=== PATIENT | male | born 1940 | race Caucasian/White ===

== ENCOUNTER 2016-11-29 10:00 | Outpatient (RCR) ==
--- NOTE | 2016-11-26 15:53 | RS.OPPTEV2 ---
Date of Note: 11/26/16 Visit #: 1 Date of Evaluation: 11/26/16 Payer Source: MEDICARE Date of Onset/Injury/Change in Status: 09/22/15 Surgery Performed?: No Treatment Diagnosis: Unsteady gt History of Condition/Mechanism of Injury:: Patient states he noticed his balance is getting worse recentlly and he feels weak all over. He states this has been going on for many yrs and has just ignored what he was seeing until he began having more difficulty getting out of a chair or getting out of bed. He has had back surgery X 2 ~ 15 yrs ago and states that he has been in pain for many yrs. He does not know if this is contributing to his balance and weakness problems. He states he fell 2-3 wks ago and landed in a pond where he was fishing. Prior Level of Function.....Patient was independent with: ADL's, Self Care, Work /Vocation, Caregiving, Ambulation/Mobility, Community Integration/Access Functional Limitations: Self Care, ADL's, Lifting, Carrying, Sitting, Standing, Bending, Squatting, Ambulation, Community Access/Integration Current Subjective/complaints:: Patient states has been falling quiet a bit over the past few months and almost fell in the shower today before coming to PT appointment. He is having difficulty performing all of his ADLs. Patient had a bone marrow biopsy about a month ago (he is unsure of who did this or why but thinks that is what was done). He states his pain has been worse since then but the balance and the pain he is not sure are connected. Treatment Side (optional): N/A Medical History Medical History: Diabetes, Arthritis, Cancer Medical History Comments:: skin cancer, patient sees Dr. Tabor for a kidney disorder. he states he shouild be on dialysis but has refused it. 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 Surgical History: Lumbar Spine, Other Surgical History Comments:: bladder surgery Smoking Status: Former smoker Hx Home Medications: Patient will bring list of meds next visit. Pain Assessment - Pain Description Pain Location: back pain and bilateral knees Pain Description: Sharp, Aching Current Pain Intensity: 8/10 Functional Outcome Measure Tinetti: 15 (46% disability) - G Codes & Severity Modifier G Codes & Modifier: Mobility. Eval - CK. Goal - CJ Source of G Code score: Tinetti Balance and Gait Assessment Gait - Gait Pattern General Gait Pattern Observation: Shuffling Step, Decrease Stride Lngth (R), Decrease Stride Lngth (L) General Range of Motion: R hamstring -40, L -45 degrees Measured hooklying in 90/90 position Muscle Strength: BLE weakness with L > R. Bilateral hips 3+/5, otherwise LLE 3+ /5 and RLE 4/5 throughout. Minimal pain reported with testing. Special Tests: BP testing: Lying down 140/78, sitting 130/80 & standing 140/60 Palpation Comments:: Muscle tightness throughout Sensation - Sensation Sensation Description: Numbness (Bilateral knees) Balance - Sitting Balance Static Sitting Balance: Normal Dynamic Sitting Balance: Good - Standing Balance Static Standing Balance: Good Dynamic Standing Balance: Fair Interventions - Exercise/Activities/Manual Therapy Exercises/Activities: NA Manual Therapy: NA - Charges Total Direct Minutes: 45 Total Treatment Time: 45 Procedures billed for this date of service:: PT Lyn (High) Assessment Assessment: Patient has significant BLE weakness, decreased BLE muscle length especially hamstrings, chronic LBP, decreased static and dynamic standing balance, decreased activity tolerance and multiple gt deficits. Patient Education: Education of diagnosis, Home Safety (Patient was encouraged to use RW which he has at home to minimize falls.), Activity Modification, Education of Plan of Care Rehab Potential: Good Short Term Goals Goal #1: Patient independent with basic strengthening HEP Goal to be met by: 12/13/16 Goal #2: BLE strength 4 to 4+/5 throughout. Goal to be met by: 12/13/16 Goal #3: Bilateral hamstring stretching initiated with correct technique. Goal to be met by: 12/13/16 Goal #4: Patient ambulates 200' with step thru gait pattern. Goal to be met by: 12/13/16 Long-Term Goals Goal #1: Tinetti score to decrease fall risk. Goal to be met by: 01/03/17 Goal #2: 5/5 BLE strength to improve stability. Goal to be met by: 01/03/17 Goal #3: Patient reports no falls in the past month. Goal to be met by: 01/03/17 Goal #4: Independent with DC HEP to maintain improved status. Goal to be met by: 01/03/17 Plan - Treatment to be Provided Procedures: Therapeutic Exercises, Therapeutic Activity, Gait Training, Manual Therapy, Massage, Patient Education Modalities: No Modalities - Treatment Plan Frequency: 3 X week Duration: 6 weeks ORDER # VISITS AND/OR THROUGH DATE: 01/03/2017 - Treatment Code (1) Unsteady gait Comments: R26.81 (2) Muscle weakness (generalized) Comments: M62.81
--- NOTE | 2016-11-27 16:27 | RS.OPPTDN ---
Subjective Date of Note: 11/27/16 Visit #: 2 Date of Evaluation: 11/26/16 Payer Source: MEDICARE Treatment Diagnosis: Unsteady gt Current Subjective/complaints:: Patient reports LE weakness is his main problem , but has significant back pain when getting up from bed or chair. Pain Assessment - Pain Description Pain Location: back pain and bilateral knees Pain Description: Sharp, Aching Current Pain Intensity: 7-8/10 - Heat/Cryotherapy Treatment: Hot Pack ([id number] to lowback prior to EX. Patient in supine. ) Interventions - Exercise/Activities/Manual Therapy Exercises/Activities: [id number] Assisted stretching of bilateral hamstrings, SKTC , and limited rotation. Isometric hip add and hip flexion. Alt hip flexion. SLR. Red theraband for hip abd in hook-lying and ham curls. Yellow theraband for scap retraction and bilateral shoulder ER. Reviewed HEP and general body mechanics. 3mins on treadmill slow pace. Leg press 30# 3s/10reps and ankld df 30 # 2s/10reps. Stationary bike 3mins slow pace. Reviewed safety and HEP. Patient given copies of HEP and therabands. Total minutes of Exercise: 30mins Manual Therapy: NA HOME EXERCISE PROGRAM: Isometric hip add and hip flexion. SLR. Yellow theraband for scap retraction and bilateral shoulder ER. - Charges Total Direct Minutes: 30mins Total Treatment Time: 50mins Procedures billed for this date of service:: HP, EX2 Assessment: Patient tolerates initiaiton of strengthening exercise and is motivated to progress. Patient Education: Body/Joint mechanics, Home Exercise Program, Home Safety Patient demonstrates compliance with HEP?: Yes Short Term Goals Goal #1: Patient independent with basic strengthening HEP Goal to be met by: 12/13/16 Progress towards Goal:: Progressing Goal #2: BLE strength 4 to 4+/5 throughout. Goal to be met by: 12/13/16 Goal #3: Bilateral hamstring stretching initiated with correct technique. Goal to be met by: 12/13/16 Goal #4: Patient ambulates 200' with step thru gait pattern. Goal to be met by: 12/13/16 Brake Mechanic Goals Goal #1: Tinetti score to decrease fall risk. Goal to be met by: 01/03/17 Goal #2: 5/5 BLE strength to improve stability. Goal to be met by: 01/03/17 Goal #3: Patient reports no falls in the past month. Goal to be met by: 01/03/17 Goal #4: Independent with DC HEP to maintain improved status. Goal to be met by: 01/03/17 Plan PLAN OF CARE EXPIRES ON:: 01/03/17 ORDER # VISITS AND/OR THROUGH DATE: 01/03/2017 PLAN: Continue Plan of Care
--- NOTE | 2016-11-29 11:28 | RS.OPPTDN ---
Subjective Date of Note: 11/29/16 Visit #: 3 Date of Evaluation: 11/26/16 Payer Source: MEDICARE Treatment Diagnosis: Unsteady gt Current Subjective/complaints:: Patient states he may continue HEP and stop therapy, as he is afraid his insurance will not cover his bill. Pain Assessment - Pain Description Pain Location: back pain and bilateral knees Pain Description: Sharp, Aching Current Pain Intensity: 7-8/10 Interventions - Exercise/Activities/Manual Therapy Exercises/Activities: [id number] Assisted stretching of bilateral hamstrings, SKTC , and limited rotation. Isometric hip add and hip flexion. Alt hip flexion. SLR. Red theraband for hip abd in hook-lying and ham curls. Patient given red and green therabands for progression of scap retraction. Added alt hip flexion and SAQ with 3# cuff weights, 2s/10reps each. Reviewed HEP and general body mechanics. 3mins then 2mins on treadmill at 0.9mph. Leg press 30# 2s/10reps and increased to 45# for 10reps. Stationary bike 3mins slow pace. Reviewed safety and HEP. Patient given copies of new exercises and therabands to progress with. Total minutes of Exercise: 30mins Manual Therapy: NA HOME EXERCISE PROGRAM: Isometric hip add and hip flexion. SLR. Yellow theraband for scap retraction and bilateral shoulder ER. - Charges Total Direct Minutes: 30mins Total Treatment Time: 35mins Procedures billed for this date of service:: EX2 Assessment: Patient motivated to porgress but is planning to stop and continue HEP as he is afraid insurance will no cover bill. Patient Education: Body/Joint mechanics, Home Exercise Program, Home Safety, Activity Modification, Education of Plan of Care Comments: PT discussed POC with patient and he was advised he is a good candidate and insurance should cover his visits. Patient demonstrates compliance with HEP?: Yes Short Term Goals Goal #1: Patient independent with basic strengthening HEP Goal to be met by: 12/13/16 (100%) Progress towards Goal:: Met Goal #2: BLE strength 4 to 4+/5 throughout. Goal to be met by: 12/13/16 Goal #3: Bilateral hamstring stretching initiated with correct technique. Goal to be met by: 12/13/16 Progress towards Goal:: Progressing Goal #4: Patient ambulates 200' with step thru gait pattern. Goal to be met by: 12/13/16 Progress towards Goal:: Progressing Snf Goals Goal #1: Tinetti score to decrease fall risk. Goal to be met by: 01/03/17 Goal #2: 01/24 BLE strength to improve stability. Goal to be met by: 01/03/17 Goal #3: Patient reports no falls in the past month. Goal to be met by: 01/03/17 Goal #4: Independent with DC HEP to maintain improved status. Goal to be met by: 01/03/17 Plan PLAN OF CARE EXPIRES ON:: 01/03/17 ORDER # VISITS AND/OR THROUGH DATE: 01/03/2017 PLAN: Hold (Patient will continue HEP over weekend and call next week about scheduling appointments.)
--- NOTE | 2016-12-20 15:13 | RS.QUICKDC ---
Discharge from PT Date of Discharge: 12/20/16 Number of Visits: 3 Reason for Discharge: Patient demonstrated concern of Medicare paying for his therapy. He attended 3 treatments with therapy consisting of exercises and activities to improve balance, trunk, and LE strength. He demonstrated independence with a HEP. Only goal met was pertaining to independence with basic HEP. All other goals not met due to patient not completing plan of care. Patient asked to hold therapy until he decided if he needed to continue to attend. No further visits made 3 weeks following last date of service. G Codes : Mobility Goal CJ, Mobility D/C CK
== END 2016-12-20 ==
PROVIDERS: ATTEND Family Medicine
DX: R26.81 Unsteadiness on feet (principal)